=== PATIENT | male | born 1965 | race African-American/Black ===

== ENCOUNTER → 2016-09-27 16:43 | Emergency (ER) | payer OTHER ==
[~2016-09-27 16:43] MED LIST: PROCARDIA10 MG PO; ULTRAM PO
== END | disposition left against medical advice (07) ==
LOC: CED 16:43
DX: Z53.21 Procedure and treatment not carried out due to patient leaving prior to being seen by health care provider (principal)

== ENCOUNTER 2016-12-27 23:00 | Inpatient (IN) | payer OTHER ==
--- NOTE | ~2016-12-27 | HP ---
Unit #: [id number] #: [id number] Patient: RUBEN COX [id number] [place] [address] [id number] I MR#: [id number] NAME: RUBEN COX. ROOM: [facility] Age: 51 Sex: M Admission Date: 12/28/2016 : 1965 Attending Physician: Chin Brunson M.D. Admitting Physician: Chin Brunson M.D. Primary Care Physician: Primary Care Physician No HISTORY AND PHYSICAL HISTORY OF PRESENT ILLNESS Ruben is a 51-year-old male admitted to [address] [place] [address] on 12/28/2016 for suicidal ideation. He also reports occasional use of alcohol and binging on crack cocaine. PAST MEDICAL HISTORY Hypertension. PAST SURGICAL HISTORY Right ankle fracture with a surgical repair. ALLERGIES No known drug allergies. SOCIAL HISTORY Reports occasional tobacco use, occasional alcohol use. He does report also a history of frequent crack cocaine use. He is currently single and living alone. FAMILY HISTORY Noncontributory. REVIEW OF SYSTEMS CONSTITUTIONAL: No fever or chills. HEENT: Denies any sore throat, ear pain or runny nose. CARDIOVASCULAR: Denies chest pain, irregular heart rhythm or palpitations. CHEST: Denies shortness of breath or cough. No hemoptysis. GASTROINTESTINAL: Denies nausea, vomiting, diarrhea or chronic constipation. ENDOCRINE: Denies history of increased thirst or urination. No recent significant weight loss or gain. GENITOURINARY: Denies dysuria, frequency, or hematuria. SKIN: Denies any rashes. HEMATOLOGIC: Denies history of increased bleeding or bruising. MUSCULOSKELETAL: Denies any hot, swollen joints. No generalized muscle pain. NEUROLOGIC: Denies problems with vision or speech. No frequent, severe headaches. No numbness, tingling or weakness in any extremities. Denies loss of bladder or bowel control. CURRENT MEDICATIONS 1. Baclofen. 2. Neurontin. Unit #: [id number] #: [id number] Patient: RUBEN COX 3. Procardia. 4. Tramadol. PHYSICAL EXAMINATION GENERAL: Alert, oriented, no acute distress. VITAL SIGNS: Blood pressure 142/99, heart rate 77, temperature 97.8. HEIGHT: 5 feet 9. WEIGHT: 209 pounds. SKIN: Warm and dry without rash or lesion. HEENT: Normocephalic. TMs not viewed. Oral and nasal passages clear. Conjunctivae clear. PERRLA. EOMs intact. NECK: Supple without lymphadenopathy or thyromegaly. HEART: Regular rate and rhythm without murmur. LUNGS: Clear. ABDOMEN: Soft, nontender, without masses or hepatosplenomegaly. : Not done. EXTREMITIES: No evidence of cyanosis, clubbing or edema. Moves all without focal deficit. NEUROLOGICAL: Grossly within normal limits. Cranial Nerves: II: Visual mccray are intact. III, IV AND : Extraocular movements are intact. Pupils are equal, round and reactive to light. V: Facial sensation is grossly normal. VII: Facial movements and expression are normal. VIII: Auditory acuity grossly intact. IX, X: Uvula is midline. Phonation is normal. XI: Patient shrugs shoulders and turns head normally. XII: Tongue protrudes in the midline. Sensory and Motor Function: Sensory and motor sensation is grossly normal. Motor: moves all extremities well. Coordination: Gait is normal. Deep Tendon Reflexes: Intact. IMPRESSION 1. Psychiatric admission. 2. Hypertension. RECOMMENDATIONS PSYCHIATRIC: Per psychiatrist. MEDICAL: No contraindications to participate in facility's activities. MEDICAL PROGNOSIS Good. MEDICAL CONDITION Stable. Dictated by... Elo Jain/lashon TD: 12/28/2016 17:51 JOB #: [id number] Unit #: [id number] #: [id number] Patient: RUBEN COX HISTORY AND PHYSICAL Page 1 of 1 X ALMA CHAN APRN HISTORY AND PHYSICAL
--- NOTE | ~2016-12-27 | DS ---
Unit #: [id number] #: [id number] [facility] [id number] [facility] [place] [address] [id number] I MR#: [id number] NAME: ROSEMARY COX. ROOM: P212 Age: 51 Sex: M Admission Date: 12/28/2016 : 1965 Discharge Date: 01/03/2017 Attending Physician: Chin Brunson M.D. Primary Care Physician: Primary Care Physician No DISCHARGE SUMMARY IDENTIFYING DATA Mr. Cox is a 51-year-old single male who is a resident of [place], [place] and is known to us from previous encounter and was self-referred to the hospital on a voluntary basis with a chief complaint of "suicidal ideation with a plan to overdose on pills." DISCHARGE DIAGNOSES Psychiatric: Major depressive disorder, recurrent, moderate, without psychotic features; cocaine dependence, moderate. Medical: Hypertension, chronic pain, neuropathy. Stressors: Mild psychosocial stressors. HISTORY OF PRESENT ILLNESS Please see initial psychiatric evaluation for details. PAST PSYCHIATRIC HISTORY Please see initial psychiatric evaluation for details. PAST MEDICAL HISTORY Please see initial psychiatric evaluation for details. HOSPITAL COURSE The patient was admitted to the adult psychiatric unit at [facility] and was oriented to the hospital environment. Routine p.r.n. medications were initiated, and he was started back on his home medications and medications were adjusted and he was closely monitored. He was taking the medications regularly and was tolerating them fairly well and was able to show a decent therapeutic response with improvement in depression and anxiety and was willing to continue treatment on an outpatient basis and was denying any suicidal or homicidal ideations and was not seen to be a danger to self or anyone else, and as such, it was decided that he will be discharged home. DISCHARGE MEDICATIONS Wellbutrin XL 150 mg in the morning for depression and trazodone 100 mg at bedtime for sleep. DISCHARGE CONDITION Stable. PROGNOSIS Fair. Unit #: [id number] #: [id number] Patient: ROSEMARY COX Dictated by... Tiara Enriquez/krishnal TD: 01/03/2017 07:26 JOB #: [id number] DISCHARGE SUMMARY Page 1 of 1 X Chin Brunson MD DISCHARGE SUMMARY
--- NOTE | ~2016-12-27 | PN ---
Unit #: [id number] #: [id number] Patient: ROSEMARY COX [id number] [facility] [address] [place] [address] [id number] I MR#: [id number] NAME: ROSEMARY COX. ROOM: P212 Age: 51 Sex: M Admission Date: 12/28/2016 : 1965 Attending Physician: Chin Brunson M.D. Admitting Physician: Chin Brunson M.D. Primary Care Physician: Primary Care Physician Sierra DRAKE PROGRESS NOTES DATE OF SERVICE: 01/01/2017 SUBJECTIVE Mr. Cox is a 51-year-old male who was seen today and chart was reviewed and case was discussed with the staff. He has been reporting persistent depressive symptoms with feelings of hopelessness and has been rather very seclusive to himself. Meanwhile, he has been cooperative with treatment recommendations and has been taking the medications and tolerating them fairly well with no reported side effects. MENTAL STATUS EXAMINATION Middle-aged male who was casually dressed with fair personal hygiene, appears to be in no acute distress or discomfort. He was awake and alert on interaction with intact orientation. His mood was anxious with a congruent affect. His speech was slow and goal directed. He denies any suicidal or homicidal ideations. His insight and judgment remain slightly impaired. TREATMENT PLAN We will continue him on his current treatment protocol. We will monitor his response and make further adjustments as needed. Dictated by... Tiara Enriquez/krishnal TD: 01/02/2017 23:45 JOB #: [id number] [facility] PROGRESS NOTES Page 1 of 1 X Chin Brunson MD PROGRESS NOTE
--- NOTE | ~2016-12-27 | PN ---
Unit #: [id number] #: [id number] Patient: ROSEMARY COX [id number] [facility] [address] [place] [address] [id number] I MR#: [id number] NAME: ROSEMARY COX. ROOM: P212 Age: 51 Sex: M Admission Date: 12/28/2016 : 1965 Attending Physician: Chin Brunson M.D. Admitting Physician: Chin Brunson M.D. Primary Care Physician: Primary Care Physician Sierra DRAKE PROGRESS NOTES DATE 12/29/2016 DISCUSSION Mr. Cox is a 51-year-old, male who was seen today and chart was reviewed and case was discussed with the staff. He has been anxious, withdrawn and rather seclusive to himself. Meanwhile, he has been cooperative with treatment recommendations and has been taking medications and tolerating them fairly well with no reported side effects. MENTAL STATUS EXAM Middle-aged male who was casually dressed with fair personal hygiene appears to be in no acute distress or discomfort. He was awake and alert on interaction with intact orientation. His mood was anxious and with a congruent affect. No suicidal or homicidal ideation. His insight and judgement remains slightly impaired. TREATMENT PLAN 1. We will continue him on his current medications and treatment protocol. We will monitor his response and make further adjustments as needed. 2. We will continue to follow up. Dictated by... Tiara Enriquez/neha TD: 01/01/2017 01:53 JOB #: [id number] Unit #: [id number] #: [id number] Patient: ROSEMARY COX [facility] PROGRESS NOTES Page 1 of 1 X Chin Brunson MD PROGRESS NOTE
--- NOTE | ~2016-12-27 | PN ---
Unit #: [id number] #: [id number] Patient: ROSEMARY COX [id number] [facility] [address] [place] [address] [id number] I MR#: [id number] NAME: ROSEMARY COX. ROOM: P212 Age: 51 Sex: M Admission Date: 12/28/2016 : 1965 Attending Physician: Chin Brunson M.D. Admitting Physician: Chin Brunson M.D. Primary Care Physician: Primary Care Physician Sierra DRAKE PROGRESS NOTES DATE January 02, 2017 DISCUSSION Mr. Cox is a 51-year-old male, who was seen today and chart was reviewed and the case was discussed with the staff. He has been anxious, withdrawn, and rather seclusive to himself. Meanwhile, he has been cooperative with the treatment recommendations and he has been taking the medications and tolerating them fairly well with no reported side effects. MENTAL STATUS EXAMINATION Middle-aged male, who was casually dressed with fair personal hygiene and appears to be in no acute distress or discomfort. He was awake and alert with impaired attention and concentration. His mood is anxious with a congruent affect. He denies any suicidal or homicidal ideations. His insight and judgment remain slightly impaired. TREATMENT PLAN 1. We will continue him on his current medications and treatment protocol, and will monitor his response to the medications, and make further adjustments as needed. 2. We will continue to followup. Dictated by... Tiara Enriquez/rene TD: 01/03/2017 07:49 JOB #: [id number] Unit #: [id number] #: [id number] Patient: ROSEMARY COX PROGRESS NOTES Page 1 of 1 X Chin Brunson MD PROGRESS NOTE
--- NOTE | ~2016-12-27 | PN ---
Unit #: [id number] #: [id number] Patient: ROSEMARY COX [id number] [facility] [address] [place] [address] [id number] I MR#: [id number] NAME: ROSEMARY COX. ROOM: P212 Age: 51 Sex: M Admission Date: 12/28/2016 : 1965 Attending Physician: Chin Brunson M.D. Admitting Physician: Chin Brunson M.D. Primary Care Physician: Primary Care Physician Sierra DRAKE PROGRESS NOTES DATE OF SERVICE: 12/30/2016 SUBJECTIVE Mr. Cox is a 51-year-old male who was seen today and chart was reviewed and case was discussed with the staff. He has been anxious and withdrawn, though has not shown any agitation, irritability, or behavioral problems, and has been cooperative with treatment recommendations and has been taking the medications and tolerating them fairly well with no reported side effects. MENTAL STATUS EXAMINATION Middle-aged male who was casually dressed with fair personal hygiene, appears to be in no acute distress or discomfort. He was awake and alert with impaired attention and concentration. His mood was anxious with a congruent affect. He denies any suicidal or homicidal ideations, and also denies any auditory or visual hallucinations. His insight and judgment remain slightly impaired. TREATMENT PLAN 1. We will continue him on his current medications and treatment protocol. We will monitor his response to the medications and make further adjustments as needed. 2. We will continue to follow up. Dictated by... Tiara Enriquez/andrey TD: 12/31/2016 00:16 JOB #: [id number] Unit #: [id number] #: [id number] Patient: ROSEMARY COXSANDER PROGRESS NOTES Page 1 of 1 X Chin Brunson MD PROGRESS NOTE
--- NOTE | ~2016-12-27 | PA ---
Unit #: [id number] #: [id number] Patient: ROSEMARY COX [id number] [facility] [address] [place] [address] [id number] I MR#: [id number] NAME: ROSEMARY COX. ROOM: P212 Age: 51 Sex: M Admission Date: 12/28/2016 : 1965 Date of Assessment: 12/28/2016 Attending Physician: Chin Brunson M.D. Admitting Physician: Chin Brunson M.D. Primary Care Physician: Primary Care Physician No PSYCHIATRIC ASSESSMENT DATE OF SERVICE 12/28/2016. IDENTIFYING DATA Mr. Cox is a 51-year-old single male, who is a resident of [place], [place], and is known to us from previous encounter and was self-referred to the hospital on a voluntary basis. CHIEF COMPLAINT "Suicidal ideation with a plan to overdose on pills." HISTORY OF PRESENT ILLNESS Mr. Cox is a 51-year-old male with history of substance abuse and mood disorder, who was self-referred to the hospital, and upon presentation, he reported that he has been having suicidal ideation with a plan to overdose on pills and that he smoked about 80 dollars worth of crack cocaine earlier today and that he has been smoking crack cocaine at least once a week for the past couple of weeks and reports that his relationship is driving him to use crack cocaine and he does not want to live like this and reports increasing stressors with multiple psychosocial issues and feelings of hopelessness and helplessness. He also reports depression, anxiety, irritability, restlessness, and suicidal ideations with intent and plan and as such, recommendation for inpatient level of care for safety and stabilization was made. SUBSTANCE ABUSE HISTORY The patient reports crack cocaine to be his drug of choice and reports that he has been using 80 dollars worth at least once a week. PAST PSYCHIATRIC HISTORY The patient has had a history of inpatient psychiatric hospitalization at [facility] and has had outpatient treatment as well, though currently he is not active in any treatment program, is not seeing a psychiatrist, and is not taking any psychotropic medications. PAST MEDICAL HISTORY The patient's medical history is significant for hypertension, chronic back pain, and neuropathy. ALLERGIES No known medication allergies. Unit #: [id number] #: [id number] Patient: ROSEMARY COX PERSONAL AND SOCIAL HISTORY A 51-year-old male, who reports that he is single, unemployed, and lives alone and has poor social support system. MENTAL STATUS EXAMINATION Middle-aged male, who was casually dressed with fair personal hygiene, appears to be in no acute distress or discomfort. He was awake and alert on interaction with intact orientation to time, place, and person. His mood was anxious and depressed with a congruent affect. His speech was slow and restricted in content. His thought processes were disorganized with some looseness of associations and suicidal ideations. His insight and judgment remain significantly impaired. DIAGNOSTIC IMPRESSION Psychiatric: Major depressive disorder, recurrent, moderate, without psychotic features and cocaine dependence, moderate. Medical: Hypertension, chronic back pain, and neuropathy. Stressors: Moderate psychosocial stressors. TREATMENT PLAN 1. The patient has presented with a history of mood disorder and substance abuse and has been decompensating and will need inpatient hospitalization for safety and stabilization. We will start him back on his home medications and we will monitor his response and make further adjustments as needed. 2. Supportive therapy was provided to the patient. 3. Safe, structured, and nourishing environment will be provided. ESTIMATED LENGTH OF STAY 5 to 7 days. ABILITY TO HELP SELF Limited. WILLINGNESS TO HELP SELF The patient appears to be willing to help self. STRENGTHS 1. Communicative. 2. Cooperative. PROBLEMS 1. Chronic dysphoric symptoms. 2. Poor social support system. DISCHARGE CRITERIA This will be contingent upon the patient's ability to go through detox without having any significant withdrawal symptoms as well as his ability to stay safe to himself, particularly after discharge from the hospital. Dictated by... Tiara Enriquez/andrey TD: 12/28/2016 14:44 Unit #: [id number] #: [id number] Patient: ROSEMARY COX JOB #: [id number] PSYCHIATRIC ASSESSMENT Page 1 of 1 X Chin Brunson MD PSYCHIATRIC ASSESSMENT
--- NOTE | ~2016-12-27 | PN ---
Unit #: [id number] #: [id number] Patient: ROSEMARY COX [id number] [facility] [address] [place] [address] [id number] I MR#: [id number] NAME: ROSEMARY COX. ROOM: P212 Age: 51 Sex: M Admission Date: 12/28/2016 : 1965 Attending Physician: Chin Brunson M.D. Admitting Physician: Chin Brunson M.D. Primary Care Physician: Primary Care Physician Sierra HSU NOTES DATE OF SERVICE: 12/31/2016 SUBJECTIVE Mr. Cox is a 51-year-old male, who was seen today and chart was reviewed, and case was discussed with the staff. He has been anxious, withdrawn, and rather seclusive to himself. Meanwhile, he has been cooperative with treatment recommendations and has been taking the medications and tolerating them fairly well. MENTAL STATUS EXAMINATION Middle-aged male, who was casually dressed with fair personal hygiene, appears to be in no acute distress or discomfort. He was awake and alert on interaction with intact orientation. His mood was anxious with a congruent affect. He denies any suicidal or homicidal ideations. His insight and judgment remain slightly impaired. TREATMENT PLAN 1. We will continue him on his current treatment protocol. We will monitor his response to the medications and make further adjustments as needed. 2. We will continue to follow up. Dictated by... Tiara Enriquez/andrey TD: 12/31/2016 15:39 JOB #: [id number] [facility] PROGRESS NOTES Page 1 of 1 X Chin Brunson MD X PROGRESS NOTE
[2016-12-29 12:55] LABS: URINE APPEARANCE CLEAR; URINE BILIRUBIN NEG (NEG); URINE BLOOD NEG (NEG); URINE COLOR YELLOW; URINE GLUCOSE NEG (NEG); URINE KETONE NEG (NEG); URINE LEUKOCYTE ESTERASE TRACE (NEG); URINE NITRATE NEG (NEG); URINE PROTEIN NEG (NEG); URINE SPECIFIC GRAVITY 1.018 (1.003-1.035)
[2016-12-29 13:00] LABS: URBCS1 AUWI 0-2 /[HPF] (0-2); URINE BACTERIA AUWI NEG (NEGATIVE); URINE SQUAMOUS EPITHELIAL CELL NONE SEEN /[HPF]; UWBCS1 AUWI 0-2 (0-5)
[2016-12-29 13:25] LABS: AMPHETAMINE NEG (NEG); BARBITURATES NEG (NEG); BENZODIAZEPINES NEG (NEG); COCAINE POS (NEG); MARIJUANA NEG (NEG); OPIATES NEG (NEG); TRICYCLIC ANTIDEPRESSANTS NEG (NEG); U METHADONE NEG (NEG)
== END 2017-01-03 09:15 | disposition home or self-care (01) | DRG 885 ==
LOC: P2S 12-28 05:28
PROVIDERS: Psychiatry & Neurology Psychiatry
DX: F33.1 Major depressive disorder, recurrent, moderate (principal); F14.20 Cocaine dependence, uncomplicated; I10 Essential (primary) hypertension; M54.9 Dorsalgia, unspecified; G62.9 Polyneuropathy, unspecified
CPT/HCPCS: 80307; 81003